=== PATIENT | male | born 1980 | race Caucasian/White ===

== ENCOUNTER 2017-03-30 11:32 | Emergency (ER) | payer BC, MEDICAID, OTHER ==
[2017-03-30 12:02] VITALS: BMI 25.7
--- NOTE | 2017-03-30 12:24 | ED PDOC ---
HPI: Headache Time Seen by Provider: 03/30/17 11:46 Chief Complaint (Provider): Aggressive behavior History Per: Family (mother) History/Exam Limitations: no limitations Onset/Duration Of Symptoms: Hrs (morning prior to arrival x2 hours) Current Symptoms Are (Timing): Still Present Additional History Per: Patient Additional Complaint(s): Manas Castro is a 36 year old male with a past medical history of Tourette Syndrome presenting to the ED for an evaluation of exacerbation of his symptoms. The patient states he has not been taking medication for Tourettes recently and has been experiencing agitation this morning. 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 He also states last night he could not sleep, waking up at 4 AM to use the bathroom and then proceeded to take a Clonazepam to sleep. He then woke up at 10 :40 AM this morning to texts from his mother stating that Viraj Lynne is planning to bomb [facility] therefore the patient became aggravated and his mother brought him to the ED for further evaluation. The patient denies any homicidal or suicidal ideations, any drug use, abdominal pain, nausea, vomiting, diarrhea , chest pain, shortness of breath, weakness, numbness, or tingling. PMD: TBD Past Medical History Reviewed: Historical Data, Nursing Documentation, Vital Signs - Medical History PMH: Anxiety, GERD Denies: HIV, Chronic Kidney Disease Other PMH: tourette's - Surgical History Surgical History: Hernia Repair (x 3), Tonsillectomy - Family History Family History: States: Unknown Family Hx - Living Arrangements Living Arrangements: With Family - Social History Alcohol: None Drugs: Denies - Immunization History Hx Tetanus Toxoid Vaccination: Yes Hx Influenza Vaccination: Yes Hx Pneumococcal Vaccination: No - Home Medications Home Medications: Ambulatory Orders Medication Instructions Recorded Alprazolam 1 mg PO BID PRN 09/14/14 Esomeprazole Magnesium [Nexium] 40 mg PO DAILY 09/14/14 Zolpidem Tartrate [Ambien] 10 mg PO HS 09/14/14 oxyCODONE/Acetaminophen [Percocet 5 mg PO Q4 PRN 09/14/14 5/325 mg Tab] DAPTOmycin [Cubicin] 500 mg IV DAILY #14 vial 09/20/14 Ertapenem [Invanz] 1 gm IV DAILY #0 pds 09/20/14 Povidone Iodine 10% [Betadine 10% 30 ml TOP DAILY #0 bottle 09/20/14 Topical Soln] oxyCODONE/Acetaminophen [Percocet 2 tab PO Q4 PRN #0 tab 09/20/14 5/325 mg Tab] Glycerin/Witch [place] 1 pad TP BID #10 pad 03/19/15 [Hygienic Cleansing W/Aloe] - Allergies Allergies/Adverse Reactions: Allergies Allergy/AdvReac Type Severity Reaction Status Date / Time No Known Allergies Allergy Verified 09/14/14 18:51 Review of Systems ROS Statement: Except As Marked, All Systems Reviewed And Found Negative Constitutional: Positive for: Other (exacerbation of body tics) Cardiovascular: Negative for: Chest Pain Respiratory: Negative for: Shortness of Breath Gastrointestinal: Negative for: Nausea, Vomiting, Abdominal Pain, Diarrhea Neurological: Negative for: Weakness, Numbness (and no tingling) Psych: Negative for: Suicidal ideation (or homicidal ideations) Physical Exam - Reviewed Nursing Documentation Reviewed: Yes Vital Signs Reviewed: Yes - Physical Exam Appears: Positive for: Non-toxic, No Acute Distress Head Exam: Positive for: ATRAUMATIC, NORMOCEPHALIC Skin: Positive for: Normal Color, Warm, Dry Eye Exam: Positive for: Normal appearance, EOMI, PERRL ENT: Positive for: Normal ENT Inspection Neck: Positive for: Normal, Painless ROM, Supple Cardiovascular/Chest: Positive for: Regular Rate, Rhythm, Chest Non Tender. Negative for: Murmur Respiratory: Positive for: Normal Breath Sounds. Negative for: Respiratory Distress Gastrointestinal/Abdominal: Positive for: Normal Exam, Soft. Negative for: Tenderness Back: Positive for: Normal Inspection Extremity: Positive for: Normal ROM. Negative for: Tenderness, Deformity Neurologic/Psych: Positive for: Alert, Oriented (x3). Negative for: Motor/ Sensory Deficits - Progress ED Course And Treament: 1315: Stable. Crisis saw pt. Does not meet criteria for admit. Fu with pcp. AAOx3. Tolerated PO. Medical Decision Making Medical Decision Making: Time: 11:46 Impression: Exacerbation of Tourette's with neck pain and headache Plan: * Crisis Evaluation Scribe Attestation: Documented by Meera Hatch, acting as a scribe for Markie Wellington MD. Provider Scribe Attestation: All medical record entries made by the Scribe were at my direction and personally dictated by me. I have reviewed the chart and agree that the record accurately reflects my personal performance of the history, physical exam, medical decision making, and the department course for this patient. I have also personally directed, reviewed, and agree with the discharge instructions and disposition. Disposition - Clinical Impression Clinical Impression: Anxiety - Patient ED Disposition Is Patient to be Admitted: No Counseled Patient/Family Regarding: Diagnosis, Need For Followup - Disposition Referrals: [facility] [Outside] - 03/31/17 Disposition: Routine/Home Disposition Time: 13:17 Condition: STABLE Additional Instructions: Return if not better in 3 days. Instructions: Anxiety (ED)
[2017-03-30 12:42] VITALS: PULSE 88; RESP 16; TEMP 98.2; O2SAT 98
[2017-03-30 12:55] VITALS: BP 129/64
== END 2017-03-30 13:40 | disposition home or self-care (01) ==
LOC: H.ER 11:32
DX: F41.9 Anxiety disorder, unspecified (principal); F95.2 Tourette's disorder